=== PATIENT | female | born 1990 | race American Indian/Alaskan Native ===

== ENCOUNTER 2018-02-16 15:26 | Emergency (ER) | payer MEDICAID ==
[2018-02-16 16:00] VITALS: RESP 18; TEMP 98.4; O2SAT 100
--- NOTE | 2018-02-16 16:24 | ED PDOC ---
Arrival/HPI - General Chief Complaint: Chest Pain Time Seen by Provider: 02/16/18 15:39 Historian: Patient - History of Present Illness Narrative History of Present Illness (Text): 02/16/18 16:17 28 y/o F hypertension presenting to the ED complaining of chest pain, tingling and numbness in the right hand that radiates up the right forearm, shortness of breath, and syncope today. She reports associated headache, dizziness, and l ightheadedness. Patient states she was driving home when she began experiencing symptoms of dizziness. Patient was able to pull her car over with her left hand and is unable to recall the events between her pulling pver and being awakened to passerby on the floor beside her car. Patient reports taking her mother's anterhypertensive medications (hydrochlorothiazide 12.5 mg,) 4 days ago, but stopped due to her belief of lifestyle changes and holistic approaches in managing her pressure. Patient denies any fever, chills, abdominal pain, nausea, vomiting, diarrhea, or any other complaints. 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 - Psychiatric Hx Substance Use: No - Anesthesia Hx Anesthesia: No Hx Anesthesia Reactions: No Hx Malignant Hyperthermia: No Family/Social History - Physician Review Nursing Documentation Reviewed: Yes Family/Social History: Unknown Family HX Smoking Status: Never Smoked Hx Alcohol Use: No Hx Substance Use: No Allergies/Home Meds Allergies/Adverse Reactions: Allergies No Known Allergies Allergy (Verified 02/16/18 15:50) Home Medications: Home Meds Medication Instructions Recorded Confirmed No Known Home Med 02/16/18 02/16/18 Review of Systems - Physician Review All systems were reviewed & negative as marked: Yes - Review of Systems Constitutional: Normal Eyes: Normal ENT: Normal Respiratory: SOB. absent: Cough Cardiovascular: Chest Pain, Syncope Gastrointestinal: Normal. absent: Abdominal Pain, Diarrhea, Nausea, Vomiting Genitourinary Female: Normal. absent: Dysuria, Frequency, Hematuria Musculoskeletal: Other (rt hand/forearm tingling and numbness). absent: Back Pain, Neck Pain Skin: Normal. absent: Rash Neurological: Normal. absent: Headache, Dizziness Endocrine: Normal Hemo/Lymphatic: Normal Psychiatric: Normal Physical Exam Vital Signs Reviewed: Yes Vital Signs Temp Pulse Resp BP Pulse Ox 02/16/18 15:27 98.4 F 95 H 18 182/133 H 100 Temperature: Afebrile Blood Pressure: Hypertensive Pulse: Regular Respiratory Rate: Normal Appearance: Positive for: Well-Appearing, Non-Toxic, Comfortable Pain Distress: None Mental Status: Positive for: Alert and Oriented X 3 - Systems Exam Head: Present: Atraumatic, Normocephalic Pupils: Present: PERRL Extroacular Muscles: Present: EOMI Conjunctiva: Present: Normal Mouth: Present: Moist Mucous Membranes Neck: Present: Normal Range of Motion Respiratory/Chest: Present: Clear to Auscultation, Good Air Exchange. No: Respiratory Distress, Accessory Muscle Use Cardiovascular: Present: Regular Rate and Rhythm, Normal S1, S2. No: Murmurs Abdomen: No: Tenderness, Distention, Peritoneal Signs Back: Present: Normal Inspection Upper Extremity: Present: Normal Inspection. No: Cyanosis, Edema Lower Extremity: Present: Normal Inspection. No: Edema Neurological: Present: GCS=15, CN II-XII Intact, Speech Normal Skin: Present: Warm, Dry, Normal Color. No: Rashes Psychiatric: Present: Alert, Oriented x 3, Normal Insight, Normal Concentration Medical Decision Making ED Course and Treatment: 02/16/18 16:28 Impression: 28 year old female presents to the ED complaining of chest pain, shortness of breath, tingling/numbness sensation in rt hand/forearm, and syncope today. Differential Diagnoses Includes But Is Not Limited To: Hypertensive Urgency/Emergency TIA/CVA ACS PE Plan: -- CT Head -- Labs -- Troponin -- D Dimer -- CXR -- HCG, Qualitative Urine -- UA -- reassess and disposition Progress Notes: 02/16/18 17:48 CTH and CXR refused per patient stating she does not want radiation. Elevated D- dimer noted to be 253. Hgb noted to be 9.9. 02/16/18 18:08 In depth discussion with patient regarding need to check for findings on CXR and CTH for completion of medical workup with questions/concerns regarding radiation exposure and personal beliefs on holistic medicine. Patient agreeable to CXR, but will think about CTH/CTPE. Nurse notified. 02/16/18 19:18 CXR performed with no acute findings. Patient approached regarding CTH/CTPE and is admantly refusing studies. AMA consent forms signed. - RAD Interpretation Radiology Orders: 02/16/18 15:57 HEAD W/O CONTRAST [CT] Stat 02/16/18 16:01 CHEST PORTABLE [RAD] Stat - Scribe Statement The provider has reviewed the documentation as recorded by the Scribe Noni Cope All medical record entries made by the Scribe were at my direction and personally dictated by me. I have reviewed the chart and agree that the record accurately reflects my personal performance of the history, physical exam, medical decision making, and the department course for this patient. I have also personally directed, reviewed, and agree with the discharge instructions and disposition. Disposition/Present on Arrival - Present on Arrival Any Indicators Present on Arrival: No History of DVT/PE: No History of Uncontrolled Diabetes: No Urinary Catheter: No History of Decub. Ulcer: No History Surgical Site Infection Following: None - Disposition Have Diagnosis and Disposition been Completed?: Yes Diagnosis: Chest pain, Hypertensive urgency Disposition: AGAINST MEDICAL ADVICE Disposition Time: 19:18 Patient Plan: Discharge Condition: SERIOUS Discharge Instructions (ExitCare): Chest Pain (ED) Forms: [employer] ([place])
[2018-02-16 16:57] LABS: URINE BILIRUBIN NEGATIVE (NEGATIVE); URINE BLOOD SMALL (NEGATIVE); URINE GLUCOSE (UA) NEGATIVE (NEGATIVE); URINE LEUKOCYTE ESTERASE TRACE Leu/uL (NEGATIVE); URINE PROTEIN NEGATIVE mg/dL (<30 mg/dL); URINE UROBILINOGEN 0.2 E.U./dL (<1 E.U./dL)
[2018-02-16 16:58] LABS: BASO # 0.02 K/mm3 (0.0-2.0); BASO % 0.4 % (0.0-3.0); EOS % 0.6 % (1.5-5.0); GRAN # 3.31 (1.4-6.5); GRAN % 61.7 % (50.0-68.0); HEMOGLOBIN 9.9 g/dL (12.0-16.0); LYMPH # 1.7 (1.2-3.4); LYMPH % 31.7 % (22.0-35.0); MEAN CELL VOLUME 84.5 fl (80.0-105.0); MEAN CORPUSCULAR HEMOGLOBIN 26.1 pg (25.0-35.0); MEAN CORPUSCULAR HGB CONC 30.8 g/dl (31.0-37.0); MONO # 0.3 (0.1-0.6); MONO % 5.6 % (1.0-6.0); RBC 3.8 10^6/uL (3.5-6.1); RED CELL DISTRIBUTION WIDTH 15.1 % (11.5-14.5); WHITE BLOOD COUNT 5.4 10^3/ul (4.5-11.0)
[2018-02-16 17:00] LABS: HCG,QUALITATIVE URINE NEGATIVE (NEGATIVE); URINE APPEARANCE CLEAR (CLEAR)
[2018-02-16 17:04] LABS: URINE RBC 15 - 20 /hpf (0-2)
[2018-02-16 17:06] LABS: ALB/GLOB RATIO 1.2 (1.1-1.8); ALBUMIN 4.3 g/dL (3.0-4.8); ALT/SGPT 19 U/L (7-56); AST/SGOT 27 U/L (14-36); BLOOD UREA NITROGEN 9 mg/dL (7-21); CALCIUM 9.4 mg/dL (8.4-10.5); GFR NON-AFRICAN AMERICAN > 60
[2018-02-16 17:09] LABS: INR 1.01; PARTIAL THROMBOPLASTIN TIME 29.1 Seconds (25.1-36.5); PROTHROMBIN TIME 11.5 SECONDS (9.4-12.5)
[2018-02-16 17:17] LABS: TROPONIN I < 0.01 ng/mL
[2018-02-16 17:23] LABS: BARBITURATES, UR NEGATIVE (NEGATIVE); BENZODIAZEPINES, UR NEGATIVE (NEGATIVE); OPIATES, UR NEGATIVE (NEGATIVE); PHENCYCLIDINE, UR NEGATIVE (NEGATIVE)
[2018-02-16 19:28] VITALS: BP 168/109; PULSE 71
--- NOTE | 2018-02-17 15:27 | CARD ---
APPROVED REPORT Date of service: 02/16/2018 EKG Measurement Heart [id number] <Conclusion> Normal sinus rhythm with sinus arrhythmia Normal ECG
--- NOTE | 2018-02-17 17:04 | RAD ---
Date of service: 02/16/2018 HISTORY: chest pressure COMPARISON: No prior. FINDINGS: LUNGS: No active pulmonary disease. PLEURA: No significant pleural effusion identified, no pneumothorax apparent. CARDIOVASCULAR: Normal. OSSEOUS STRUCTURES: No significant abnormalities. VISUALIZED UPPER ABDOMEN: Normal. OTHER FINDINGS: None. IMPRESSION: No active disease.
== END 2018-02-16 19:51 | disposition left against medical advice (07) ==
LOC: ED 15:26
DX: I16.0 Hypertensive urgency (principal); R07.9 Chest pain, unspecified; Z91.19 Patient's noncompliance with other medical treatment and regimen